=== PATIENT | female | born 1970 | race Two or more races ===

== ENCOUNTER → 2024-08-21 | Outpatient (CLI) | payer MEDICAID, SELFPAY ==
--- NOTE | 2024-08-21 09:15 | XR_ITS ---
Examination: Breast ultrasound, unilateral, right complete Date and time of exam: August 21, 2024 1001 hrs. Indications: Patient states right axillary palpable lump 3 years removed 2 weeks ago, benign pathology Technique: Real-time vines scale ultrasonographic imaging performed right breast including all 4 quadrants as well as nipple retroareolar and axillary region. Findings: No cystic or solid mass Impression: BI-RADS Category 1: Negative studies
--- NOTE | 2024-08-21 10:00 | XR_ITS ---
Examination: Diagnostic digital mammography, bilateral Computer aided detection 3-D breast Tomosynthesis, bilateral Date and time of exam: August 21, 2024 1007 hrs. No priors Indications: Right breast pain beginning a few weeks ago Technique: Nonmagnified MLO, CC views of the breasts to been obtained, reconstructed from 3-D Tomosynthesis images. R2 computer aided detection program utilized for evaluation of suspicious masses and/or abnormal calcifications. 3-D Tomosynthesis images obtained. Findings: Scattered areas of fibroglandular density 14 mm focal asymmetry indistinct margins retroareolar region right breast 3 mm nodule upper inner right breast 3 mm nodule nipple level left breast Impression: 14 mm focal asymmetry indistinct margins retroareolar region right breast, recommend follow-up spot tomographic views of this asymmetry 3 mm nodule upper inner right breast, 3 mm nodule nipple level left breast, recommend follow-up spot tomographic views of these nodules Recommend bilateral breast sonography follow-up to complete workup.
== END | disposition home or self-care (01) ==
LOC: CDIM 09:43
PROVIDERS: PCP Student in an Organized Health Care Education/Training Program; Referring Provider Student in an Organized Health Care Education/Training Program; Visit Provider Student in an Organized Health Care Education/Training Program
DX: N64.89 Other specified disorders of breast (principal); N63.12 Unspecified lump in the right breast, upper inner quadrant
CPT/HCPCS: 76641; 77062; 77066; G0279

== ENCOUNTER → 2025-06-20 | Outpatient (CLI) | payer OTHER, SELFPAY ==
--- NOTE | 2025-06-20 14:02 | XR_ITS ---
Examination: Left hip AP, lateral, AP pelvis 3 views Technique: Hip AP lateral, AP pelvis, 3 views Exam date and time: June 20, 2025, 1404 hours INDICATIONS: Left hip pain months. FINDINGS: No left hip fracture or dislocation No avascular necrosis Right hip bones of the pelvis intact Mild bilateral narrowing hip joint IMPRESSION: Mild bilateral narrowing hip joint.
--- NOTE | 2025-06-20 14:02 | XR_ITS ---
Examination: Knee, left, 3 views Technique: Knee AP, lateral, oblique 3 views Date and time of exam: June 20, 2025, 1412 hours INDICATIONS: Left knee pain months. FINDINGS: No significant joint narrowing No fracture or dislocation No knee effusion IMPRESSION: Negative for osseous abnormality
== END | disposition home or self-care (01) ==
LOC: CDIM 13:53
PROVIDERS: Referring Provider Family Medicine; Visit Provider Family Medicine
DX: M23.8X2 Other internal derangements of left knee (principal); M25.852 Other specified joint disorders, left hip
CPT/HCPCS: 73502; 73562

== ENCOUNTER → 2025-08-01 | Outpatient (CLI) | payer MEDICAID, SELFPAY ==
--- NOTE | 2025-08-01 13:00 | XR_ITS ---
Examination: Breast ultrasound complete, bilateral Date and time of exam: August 01, 2025, 1306 hours INDICATIONS: Mammogram August 21, 2000 2414 mm focal asymmetry retroareolar region right breast 3 mm nodule upper inner right breast 3 mm nodule nipple level left breast Technique: Real-time grayscale ultrasonographic imaging bilateral breasts, including all 4 quadrants as well as nipple retroareolar and axillary regions. Findings: Sonographic images right breast 11:00 cyst 5 x 4 mm No solid nodules Sonographic images left breast No cystic or solid mass IMPRESSION: BI-RADS Category 2: Benign findings
--- NOTE | 2025-08-01 14:00 | XR_ITS ---
Examination: Diagnostic digital mammography, bilateral Computer aided detection 3-D breast Tomosynthesis, bilateral Date and time of exam: 08/01/2025 130 Comparisons: 08/21/2020 Indications: 4 right breast pain Technique: Nonmagnified MLO, CC views of the breasts to been obtained, reconstructed from 3-D Tomosynthesis images. R2 computer aided detection program utilized for evaluation of suspicious masses and/or abnormal calcifications. 3-D Tomosynthesis images obtained. Findings: There are scattered areas of fibroglandular density. Multiple bilateral benign-appearing oval circumscribed masses. Evidence of abnormal masses or suspicious calcifications. Impression: BI-RADS category 2: Benign findings Recommend 1 year follow-up mammogram
== END | disposition home or self-care (01) ==
PROVIDERS: PCP Student in an Organized Health Care Education/Training Program; Referring Provider Student in an Organized Health Care Education/Training Program; Visit Provider Student in an Organized Health Care Education/Training Program
DX: R92.323 Mammographic fibroglandular density, bilateral breasts (principal)
CPT/HCPCS: 76641; 77062; 77066; G0279